=== PATIENT | female | born 1960 | race Caucasian/White ===

== ENCOUNTER 2021-12-11 04:03 | Emergency (ER) | payer OTHER, SELFPAY ==
[2021-12-11 04:16] VITALS: PULSE 114; O2SAT 95
[2021-12-11 04:17] VITALS: BP 218/100; PULSE 112; O2SAT 93
[2021-12-11 04:21] VITALS: BP 206/93; BP 209/93; PULSE 105; RESP 18; TEMP 37; O2SAT 97; BMI 39.9
[2021-12-11 04:30] VITALS: BP 195/93; PULSE 98; O2SAT 95
[2021-12-11] MEDS: PENICILLIN VK 250 MG TABLET 500 MG PO (04:31)
--- NOTE | 2021-12-11 04:33 | ED.GENADULT ---
HPI - General Adult General Chief complaint: Dental/Oral Stated complaint: Tooth infection left lower side Time Seen by Provider: 12/11/21 04:05 Source: patient Mode of arrival: Ambulatory History of Present Illness HPI narrative: Patient is a 61-year-old female. Has had head and neck cancer in the past and has had radiation which is caused her have very poor teeth. She is here for evaluation of pain and swelling to her left lower jaw. It started yesterday. It has worsened since then. Started swelling over the past several hours. No problems breathing. Related Data Previous Rx's Medication Instructions Recorded penicillin V potassium 500 mg 500 mg PO QID 7 Days #28 tab 12/11/21 tablet Allergies Allergy/AdvReac Type Severity Reaction Status Date / Time Sulfa (Sulfonamide Allergy Severe Swelling Verified 12/11/21 04:25 Antibiotics) of Lip/Tongue/Throat erythromycin base Allergy Mild Rash Verified 12/11/21 04:25 Corticosteroids AdvReac Severe Hallucinati Verified 12/11/21 04:25 (Glucocorticoids) ng fentanyl AdvReac Severe Hallucinati Verified 12/11/21 04:25 ng [id number] Reductase AdvReac Unknown Verified 12/11/21 04:25 Inhibitor Review of Systems Constitutional Constitutional: Reports system reviewed and no additional complaints, except as documented ENT Ears, Nose, Mouth, and Throat: Reports system reviewed and no additional complaints, except as documented Respiratory Respiratory: Reports system reviewed and no additional complaints, except as documented Integumentary/Breasts Skin/Breast: Reports system reviewed and no additional complaints, except as documented Patient History Social History lives independently: Yes Exam Initial Vital Signs Initial Vital Signs: Vital Signs Temperature 98.6 F 12/11/21 04:21 Pulse Rate 105 H 12/11/21 04:21 Respiratory Rate 18 12/11/21 04:21 Blood Pressure 206/93 H 12/11/21 04:21 Pulse Oximetry 97 12/11/21 04:21 HENMT Other HENMT:: Patient does have poor dentition with caries in multiple fractured teeth. She has swelling along the left mandibular ridge. There is no drainable abscess noted intraorally. No skin changes over the skin. Neck Other: Swelling and discomfort along the left-sided mandibular ridge Skin Other: No skin changes over the area Extrem General: normal to inspection and capillary refill normal Course Orders Ordered: Discontinued Medications Penicillin V Potassium (Penicillin Vk 250 Mg Tablet) 500 mg PO NOW ONE Stop: 12/11/21 04:26 Last Admin: 12/11/21 04:31 Dose: 500 mg Documented by: MIRIAM Vital Signs Vital signs: Vital Signs - 8 hr 12/11/21 04:21 Temperature 98.6 F Pulse Rate 105 H Respiratory Rate 18 Blood Pressure 206/93 H Pulse Oximetry 97 Medical Decision Making MDM Narrative Medical decision making narrative: Patient does have poor dentition. There is no drainable abscess noted on the exam. No fevers. Tolerating secretions. Will start her on antibiotics. She was given return precautions. She expressed understanding and agreement. Discharge Plan Departure Patient Disposition: Home Clinical Impression: Dental abscess Instructions: Tooth Abscess Activity Restrictions/Additional Instructions: A prescription for antibiotics was sent to the [facility] on [facility]. Please start taking them as directed. You can take Tylenol or ibuprofen for any discomfort. Contact your primary doctor for follow-up. Return to the emergency department for any new or worsening symptoms. Prescriptions: New penicillin V potassium 500 mg tablet 500 mg PO QID 7 Days Qty: 28 0RF Referrals: Paula Noel MD [Primary Care Provider] -
== END 2021-12-11 04:37 | disposition home or self-care (01) ==
PROVIDERS: Emergency Provider Emergency Medicine; PCP Internal Medicine
DX: K04.7 Periapical abscess without sinus (principal)
CPT/HCPCS: 99283

== ENCOUNTER 2022-03-27 02:46 | Emergency (ER) | payer OTHER, SELFPAY ==
[2022-03-27 03:07] VITALS: BP 235/122; PULSE 93; RESP 18; O2SAT 99
--- NOTE | 2022-03-27 04:00 | ED.FALL ---
HPI - Fall General Chief Complaint: Fall Stated Complaint: fell at work Time Seen by Provider: 03/27/22 02:50 Source: patient Mode of arrival: Ambulatory History of Present Illness HPI Narrative: 61-year-old woman with a history of diabetes, post head and neck cancer with left radical neck dissection, chemotherapy and radiation was at work this evening at [employer] when she stumbled over oxygen tubing landing on her left shoulder and left hip. She was able to get up off the floor did not lose consciousness but is having significant left shoulder pain difficulty in moving her arm completely. The left hip pain seems to be more soft tissue when she is able to walk. She took 800 mg of ibuprofen prior to arrival. This is an L&I claim and forms are filled out she reports no recent fevers, cough, palpitations, chest pain, dyspnea. She notes that she is on chronic pain medication after her radical neck dissection for her cancer. Related Data Allergies Allergy/AdvReac Type Severity Reaction Status Date / Time Sulfa (Sulfonamide Allergy Severe Swelling Verified 12/11/21 04:25 Antibiotics) of Lip/Tongue/Throat erythromycin base Allergy Mild Rash Verified 12/11/21 04:25 Corticosteroids AdvReac Severe Hallucinati Verified 12/11/21 04:25 (Glucocorticoids) ng fentanyl AdvReac Severe Hallucinati Verified 12/11/21 04:25 ng [id number] Reductase AdvReac Unknown Verified 12/11/21 04:25 Inhibitor Review of Systems Review of Systems Narrative: Remainder of complete review of systems is otherwise unremarkable except for that included in the HPI. Patient History Medical History (Updated 03/27/22 @ 05:19 by Laura Reyes MD) Head and neck cancer Social History lives independently: Yes Smoking Status: Current every day smoker Smoking Status: Current every day smoker alcohol intake frequency: 0-2 drinks per day Substance Use Type: does not use Exam Initial Vital Signs Initial Vital Signs: Vital Signs Pulse Rate 93 H 03/27/22 03:07 Respiratory Rate 18 03/27/22 03:07 Blood Pressure 235/122 H 03/27/22 03:07 Pulse Oximetry 99 03/27/22 03:07 Oxygen Delivery Method 03/27/22 03:07 General: Healthy appearing, in obvious pain but Able to give a complete and coherent history. Well-nourished well-developed HEENT: normal sclera with reactive pupils, soft tissue defect left side of her neck with radiation scarring Neck: No JVD, supple, no cervical motion tenderness Respiratory: Lungs are clear to auscultation, no wheezing no rales no rhonchi. Full and symmetrical air movement Cardiac: Regular rate and rhythm no murmurs no bruits Abdomen: Soft, nontender, good bowel tones, no flank pain Skin: Warm and dry, no rashes Neurologic: Grossly neurologically intact with no obvious asymmetries or abnormalities Extremities: Tenderness along the left shoulder with painful external rotation and abduction without swelling, obvious bony abnormality, effusions or erythema. She has good range of motion at the elbow and wrist and is neurovascularly intact. She has some tenderness along the outer left hip/posterior iliac crest without obvious contusions or abrasions. She has good range of motion at the hip itself no tenderness with pelvic ring manipulation. Psych: Cooperative, appropriate insight and affect Course Orders Ordered: ED Orders 03/27/22 04:07 XR shoulder LT min 2V Stat Discontinued Medications Oxycodone/Acetaminophen (Oxycodone/Acetaminophen 5/325 Tablet) 2 tab PO NOW ONE Stop: 03/27/22 04:08 Last Admin: 03/27/22 04:38 Dose: 2 tab Documented By: KP Vital Signs Vital signs: Vital Signs - 8 hr 03/27/22 03:07 Pulse Rate 93 H Respiratory Rate 18 Blood Pressure 235/122 H Pulse Oximetry 99 Oxygen Delivery Method Room Air MDM - Fall Imaging Data X-ray shoulder: Radiologist's Impression: Degenerative changes of the glenohumeral and acromioclavicular joints without acute traumatic injury. 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 She landed on her left shoulder with no acute bony significant pain. No obvious effusion appreciated. She has a contusion to the left flank again no bony injury appreciated and she is able to walk with minimal antalgic gait. She is on chronic pain management after her cancer surgery and does not need pain medications at home. X-rays are reviewed with her. She is placed in a sling for comfort. Limited work activity forms are filled out. Recommended no lifting but walking sitting and standing as needed cancel be appropriate. Segundo I forms are filled out. Discharge Plan Departure Patient Disposition: Home Clinical Impression: Fall Qualifiers: Encounter type: initial encounter Qualified Code(s): W19.XXXA - Unspecified fall, initial encounter Left shoulder strain Qualifiers: Encounter type: initial encounter Qualified Code(s): S46.912A - Strain of unspecified muscle, fascia and tendon at shoulder and upper arm level, left arm, initial encounter Contusion of hip, left Qualifiers: Encounter type: initial encounter Qualified Code(s): S70.02XA - Contusion of left hip, initial encounter Instructions: DI for Shoulder Sprain Activity Restrictions/Additional Instructions: Thank you for coming in today Your x-ray does not show any acute bony injury. Your placed in a sling for comfort and have your chronic pain medications available as needed. If you are continuing to have pain you may end up needing advanced imaging such as an MRI to look for soft tissue injury such is a rotator cuff tear. The pain to your left hip/buttock area is to bruise and should heal reasonably well. Consider using 400 mg of ibuprofen (2 [id number] pills) and 1 Tylenol every 6 hours in addition to your 10 mg of oxycodone as needed for your chronic pain. L and I and work release forms are filled out. I hope you heal quickly Referrals: Paula Noel MD [Primary Care Provider] -
--- NOTE | 2022-03-27 04:07 | DI.RAD.S_ITS ---
PROCEDURE: XR SHOULDER LT MIN 2V INDICATIONS: trauma TECHNIQUE: 3 views of the shoulder were acquired. COMPARISON: None. FINDINGS: Bones: No fractures or dislocations. No suspicious bony lesions. There is joint space narrowing at the acromioclavicular joint. Visualized ribs appear intact. Soft tissues: There is mild calcific tendinitis of the rotator cuff. IMPRESSION: Degenerative change in calcific tendinitis. No acute cardiopulmonary findings. If pain persists, followup imaging in 5-7 days is recommended to exclude occult fracture. These findings are concordant with the overnight interpretation. Dictated by: Eloise Ortiz M.D. on 03/27/2022 at 8:31 Approved by: Eloise Ortiz M.D. on 03/27/2022 at 8:32
[2022-03-27] MEDS: OXYCODONE/ACETAMINOPHEN 5/325 TABLET 2 TAB PO (04:38)
[2022-03-27 05:28] VITALS: BP 166/88; PULSE 91; RESP 18; O2SAT 96
== END 2022-03-27 05:29 | disposition home or self-care (01) ==
PROVIDERS: Emergency Provider Emergency Medicine; PCP Internal Medicine
DX: S46.912A Strain of unspecified muscle, fascia and tendon at shoulder and upper arm level, left arm, initial encounter (principal); S70.02XA Contusion of left hip, initial encounter; W19.XXXA Unspecified fall, initial encounter; Y99.0 Civilian activity done for income or pay
CPT/HCPCS: 73030; 99283; 99284

== ENCOUNTER 2023-02-05 07:12 | Emergency (ER) | payer OTHER, SELFPAY ==
[2023-02-05 07:31] VITALS: BP 131/75; PULSE 89; RESP 18; TEMP 36.8; O2SAT 97; BMI 38.2
--- NOTE | 2023-02-05 07:37 | ED.GENADULT ---
HPI - General Adult General Chief complaint: Fall Stated complaint: Fall on Sat pain getting worse Time Seen by Provider: 02/05/23 07:16 History of Present Illness HPI narrative: 62-year-old female daily smoker with history of chronic pain presents with a chief complaint of multiple injuries as a consequence of a ground level fall on Saturday. She states that she got up early in the morning to go to the bathroom and fell. She suffered an abrasion to the right side of her head but no loss of consciousness, nausea or vomiting and takes no blood thinners. She denies any neck or back pain. She has right shoulder pain but full range of motion, right hip pain and right knee pain. She was able to work a full shift since the fall and denies dizziness, weakness or lightheadedness. She has no chest pain or shortness of breath. Her primary complaint is of pain in her bilateral wrists. She states that she has decent range of motion but the pain she describes as burning and even subtle touch of the skin makes her feel like she is on fire. She denies any numbness, tingling or weakness. Related Data Previous Rx's Medication Instructions Recorded gabapentin 300 mg capsule 300 mg PO BEDTIME #14 caps 02/05/23 Allergies Allergy/AdvReac Type Severity Reaction Status Date / Time Sulfa (Sulfonamide Allergy Severe Swelling Verified 12/11/21 04:25 Antibiotics) of Lip/Tongue/Throat erythromycin base Allergy Mild Rash Verified 12/11/21 04:25 Corticosteroids AdvReac Severe Hallucinati Verified 12/11/21 04:25 (Glucocorticoids) ng fentanyl AdvReac Severe Hallucinati Verified 12/11/21 04:25 ng [id number] Reductase AdvReac Unknown Verified 12/11/21 04:25 Inhibitor Review of Systems Review of Systems Narrative: GENERAL: Denies chills, fatigue, malaise, fever, sweats. HEENT: Denies sinus pain, ear pain, sore throat, difficulty swallowing, dizziness. RESPIRATORY: Denies dyspnea, cough, wheezing, hemoptysis, sputum. CARDIOVASCULAR: Denies chest pain, palpitations, orthopnea, edema, GASTROINTESTINAL: Denies nausea, vomiting, abdominal pain, diarrhea, constipation, melena. : Denies dysuria, frequency, incontinence, hematuria, urinary retention. MUSCULOSKELETAL: See HPI SKIN: Denies rash, skin lesions, or other NEUROLOGIC: See HPI PSYCHIATRIC: No concerning psychosocial issues. 12 point review of systems is negative except for those stated above Patient History Medical History Head and neck cancer Social History lives independently: Yes Smoking Status: Current every day smoker Smoking Status: Current every day smoker alcohol intake frequency: 0-2 drinks per day Substance Use Type: does not use Exam Narrative Exam Narrative: GENERAL: [62] year old patient appears stated age. Well-developed patient, in mild distress. GCS 15 HEAD: Superficial abrasion right forehead, no contusion or hematoma, no evidence of depressed skull fracture. EYES: Pupils equal round and reactive. No hyphema Extraocular motions intact. No scleral icterus. No injection or drainage. ENT: Nose without bleeding, purulent drainage. Throat without erythema, tonsillar hypertrophy or exudate. Airway patent. NECK: Trachea midline. Non tender. No midline pain or tenderness, no step-offs or crepitance, no change with axial load CARDIOVASCULAR: Regular rate and rhythm without murmurs, gallops, or rubs. RESPIRATORY: Clear to auscultation. Breath sounds equal bilaterally. No wheezes, rales, or rhonchi. GASTROINTESTINAL: Abdomen soft, non-tender, nondistended. EXTREMITIES: Right shoulder is painful. Patient has full but painful range of motion, no obvious deformity. Bilateral upper extremities with 5/5 strength, sensation intact. Sensation and cap refill intact in both hands. Palpable radial pulses. No obvious deformity. Patient has burning pain with superficial touch of bilateral thumbs and dorsum of hand. Minimal pain on palpation of right hip, no shortening or rotation. Minimal pain on palpation of knee, no effusion or ligamentous laxity. BACK: Nontender without deformity or crepitance. No flank tenderness. NEURO: AOx3. SKIN: No rash or erythema of visible areas Initial Vital Signs Initial Vital Signs: Vital Signs Temperature 98.2 F 02/05/23 07:31 Pulse Rate 89 02/05/23 07:31 Respiratory Rate 18 02/05/23 07:31 Blood Pressure 131/75 02/05/23 07:31 Pulse Oximetry 97 02/05/23 07:31 Oxygen Delivery Method Room Air 02/05/23 07:31 Course Orders Ordered: ED Orders 02/05/23 07:40 XR hip w pel if done RT 2V Stat XR knee RT 3V Stat XR ribs RT min 3V w CXR1V Stat XR shoulder RT min 2V Stat XR wrist LT min 3V Stat XR wrist RT min 3V Stat Discontinued Medications Gabapentin (Gabapentin 300 Mg Capsule) 300 mg PO NOW ONE Stop: 02/05/23 08:42 Last Admin: 02/05/23 09:00 Dose: 300 mg Documented By: NR Vital Signs Vital signs: Vital Signs - 8 hr 02/05/23 07:31 Temperature 98.2 F Pulse Rate 89 Respiratory Rate 18 Blood Pressure 131/75 Pulse Oximetry 97 Oxygen Delivery Method Room Air Medical Decision Making MDM Narrative Medical decision making narrative: [62] year old patient presents with multiple injuries from fall Multiple etiologies for patient's symptoms considered including, but not limited to: [Fractures versus dislocation versus other] Prior Charts reviewed in our EMR Primary Historian: patient Imaging reviewed: X-rays of shoulder, ribs, bilateral wrists, right hip and knee with evidence of arthritis but no fracture or dislocation Patient with reassuring history and physical exam. Imaging without evidence of fracture or dislocation. No obvious deformities, injuries are closed and neurovascularly intact. Bilateral thumbs and dorsum of wrist with burning pain even with light touch of skin. There is some question about possible inflammatory process related to the trauma resulting in carpal tunnel like symptoms. We did discuss the utility of splints but given how sensitive her skin is she would prefer not to. She has a poor reaction to steroids but we did discuss the use of gabapentin. First dose given here and prescription sent to her pharmacy. She already has a follow-up appointment with her primary care coming up Findings and discharge diagnosis discussed with patient/family followed by verbalization of understanding Return precautions discussed with patient/family whom verbalize understanding of diagnosis and plan Discharge Plan Departure Patient Disposition: Home Clinical Impression: Shoulder sprain, Contusion of hip, Contusion of knee, Acute pain of both wrists Instructions: How to Prevent Falls Activity Restrictions/Additional Instructions: *You have been diagnosed with [fall with minor injuries. As we discussed all of the x-rays are reassuring and there is no evidence of fracture or dislocation.] *What to do: *Please continue to take your regular medications as directed. Also as we discussed please consider the routine use of anti-inflammatories for the next few days. Otherwise take your medications as previously prescribed [x ] New medication prescriptions sent to your pharmacy: [ [facility] in [place]] [ ] New medication written as a paper prescription [ ] No new medications given *Please follow up with your primary care provider in 2-3 days, call for an appointment. Let them know you were seen in the Emergency Department and that we ask that you be seen in follow up. We will electronically transmit a record of today's note if your PCP is in our system *If you do not have a primary care provider please contact the [facility] Resource line at [phone]. They will ask some questions about your medical history and help get you set up with a doctor in the community. *Return to Emergency Department if you should have any new, worsening or concerning symptoms, such as [fever greater than 101 F, shaking chills, worsening pain, persistent vomiting or other bothersome symptoms] Prescriptions: New gabapentin 300 mg capsule 300 mg PO BEDTIME Qty: 14 0RF Referrals: Paula Noel MD [Primary Care Provider] - Stand Alone Forms: Patient Portal/API, Work Release Note
--- NOTE | 2023-02-05 07:40 | DI.RAD.S_ITS ---
PROCEDURE: XR SHOULDER RT MIN 2V INDICATIONS: fall with pain TECHNIQUE: 3 views of the shoulder were acquired. COMPARISON: [facility], CR, XR SHOULDER LT MIN 2V, 03/27/2022, 4:26. FINDINGS: Bones: No fractures or dislocations. No suspicious bony lesions. Visualized ribs appear intact. Soft tissues: No suspicious soft tissue calcifications. IMPRESSION: No evidence acute bony abnormality. If clinical suspicion and/or symptoms persist, further assessment with repeat plain films, or advanced imaging (e.g., CT, MRI, or bone scan) may be helpful for further assessment. Dictated by: Miguel A Ruiz M.D. on 02/05/2023 at 8:19 Approved by: Miguel A Ruiz M.D. on 02/05/2023 at 8:20
--- NOTE | 2023-02-05 07:40 | DI.RAD.S_ITS ---
PROCEDURE: XR WRIST LT MIN 3V INDICATIONS: fall with pain TECHNIQUE: 4 views of the wrist were acquired. COMPARISON: None. FINDINGS: Bones: No fractures or dislocations. Severe degenerative arthritis of the base of the thumb at the 1st carpometacarpal joint with large osteophytes, severe joint space loss, and subluxation. No suspicious bony lesions. Scaphoid view: Scaphoid intact Soft tissues: No suspicious soft tissue calcifications. IMPRESSION: Severe degenerative arthritis of base of the thumb. No evidence acute bony abnormality. If clinical suspicion and/or symptoms persist, further assessment with repeat plain films, or advanced imaging (e.g., CT, MRI, or bone scan) may be helpful for further assessment. Dictated by: Miguel A Ruiz M.D. on 02/05/2023 at 8:20 Approved by: Miguel A Ruiz M.D. on 02/05/2023 at 8:23
--- NOTE | 2023-02-05 07:40 | DI.RAD.S_ITS ---
PROCEDURE: XR HIP W PEL IF DONE RT 2V INDICATIONS: fall with pain TECHNIQUE: AP pelvis with lateral view(s) of the right hip(s). COMPARISON: None. FINDINGS: Bones: No fractures or dislocations. Pelvic ring appears intact. No suspicious bony lesions. Mild bilateral hip degenerative change. Soft tissues: The visualized bowel gas pattern is normal. No suspicious soft tissue calcifications. IMPRESSION: Mild bilateral hip degenerative change. No evidence acute bony abnormality. If clinical suspicion and/or symptoms persist, further assessment with repeat plain films, or advanced imaging (e.g., CT, MRI, or bone scan) may be helpful for further assessment. Dictated by: Miguel A Ruiz M.D. on 02/05/2023 at 8:25 Approved by: Miguel A Ruiz M.D. on 02/05/2023 at 8:26
--- NOTE | 2023-02-05 07:40 | DI.RAD.S_ITS ---
PROCEDURE: XR KNEE RT 3V INDICATIONS: fall with knee pain TECHNIQUE: 3 views of the knee were acquired. COMPARISON: None. FINDINGS: Bones: No fractures or dislocations. No suspicious bony lesions. Tricompartment osteophytes, bulky in the medial compartment, with severe medial compartment joint space loss. Soft tissues: Small joint effusion. No suspicious soft tissue calcifications. IMPRESSION: Severe degenerative arthritis of the right knee. No evidence acute bony abnormality. Dictated by: Miguel A Ruiz M.D. on 02/05/2023 at 8:18 Approved by: Miguel A Ruiz M.D. on 02/05/2023 at 8:18
--- NOTE | 2023-02-05 07:40 | DI.RAD.S_ITS ---
PROCEDURE: XR RIBS RT MIN 3V W CXR 1V INDICATIONS: fall with rib pain TECHNIQUE: 2 views of the right ribs were acquired, along with a single view chest. COMPARISON: None. FINDINGS: Surgical changes and devices: None. Bones and chest wall: No fractures or dislocations. No suspicious bony lesions. Overlying soft tissues appear unremarkable. Lungs and pleura: No pleural effusions or pneumothorax. Lungs appear clear. Mediastinum: Mediastinal contours appear normal. Heart size is normal. IMPRESSION: No evidence of displaced right rib fracture. No evidence acute pulmonary process. Dictated by: Miguel A Ruiz M.D. on 02/05/2023 at 8:19 Approved by: Miguel A Ruiz M.D. on 02/05/2023 at 8:19
--- NOTE | 2023-02-05 07:40 | DI.RAD.S_ITS ---
PROCEDURE: XR WRIST RT MIN 3V INDICATIONS: fall with pain TECHNIQUE: 4 views of the wrist were acquired. COMPARISON: [facility], , XR WRIST LT MIN 3V, 02/05/2023, 7:42. FINDINGS: Bones: No fractures or dislocations. Severe 1st carpometacarpal joint degenerative arthritis. No suspicious bony lesions. Scaphoid view: Intact Soft tissues: No suspicious soft tissue calcifications. IMPRESSION: Severe degenerative arthritis of the base of the thumb. No evidence acute bony abnormality. If clinical suspicion and/or symptoms persist, further assessment with repeat plain films, or advanced imaging (e.g., CT, MRI, or bone scan) may be helpful for further assessment. Dictated by: Miguel A Ruiz M.D. on 02/05/2023 at 8:23 Approved by: Miguel A Ruiz M.D. on 02/05/2023 at 8:25
[2023-02-05] MEDS: GABAPENTIN 300 MG CAPSULE PO (09:00)
== END 2023-02-05 09:03 | disposition home or self-care (01) ==
PROVIDERS: Emergency Provider Emergency Medicine; PCP Internal Medicine
DX: S43.401A Unspecified sprain of right shoulder joint, initial encounter (principal); S70.01XA Contusion of right hip, initial encounter; S80.01XA Contusion of right knee, initial encounter; M25.532 Pain in left wrist; M25.531 Pain in right wrist; W18.30XA Fall on same level, unspecified, initial encounter
CPT/HCPCS: 71101; 73030; 73110; 73502; 73562; 99283; 99284